=== PATIENT | female | born 1940 | race Caucasian/White ===

== ENCOUNTER 2019-01-11 05:48 | Observation (INO) | payer MEDICARE ==
--- NOTE | 2019-01-07 11:22 | Diagnostic Imaging Report ---
EXAMINATION: CHEST 2 VIEWS INDICATION: Pre-admit. COMPARISON: Chest radiograph 09/04/2013. FINDINGS: TUBES and LINES: Left-sided AICD device with leads overlying the right atrium, coronary sinus, and right ventricle. LUNGS: Lungs are well inflated. A 7 mm nodular opacity projects over the right midlung. There is no evidence of pneumonia or pulmonary edema. Mild patchy right basilar opacity, likely atelectasis. PLEURA: No pleural effusion or pneumothorax. HEART AND MEDIASTINUM: The cardiomediastinal silhouette is unremarkable. There are atherosclerotic calcifications within the aorta. BONES AND SOFT TISSUES: No acute osseous abnormality. UPPER ABDOMEN: No free air under the diaphragm. IMPRESSION: No acute radiographic abnormality. A 7 mm nodular opacity projects over the right midlung. Suggest chest CT for further evaluation. Signed by: Dr. Gaudencio Hart MD on 01/07/2019 11:18 AM
[2019-01-08 08:41] LABS: BASOPHILS % 0.8 % (0.0-1.0); EOSINOPHILS # (AUTO) 0.2 (0.0-0.4); HEMOGLOBIN 12.9 g/dL (12.0-16.0); LYMPHOCYTES # (AUTO) 1.2 (1.0-3.2); LYMPHOCYTES % 24.7 % (18.0-39.1); MEAN CORPUSCULAR HEMOGLOBIN 29.6 pg (28-32); MEAN CORPUSCULAR HGB CONC 33.1 g/dL (31-35); MEAN CORPUSCULAR VOLUME 89.4 fL (81-99); MONOCYTES # (AUTO) 0.3 (0.2-0.8); NEUTROPHILS # (AUTO) 3.2 (2.1-6.9); NEUTROPHILS % 65.1 % (38.7-80.0); PLATELET COUNT 165 x10e3/uL (140-360); RED BLOOD COUNT 4.36 x10e6/uL (3.6-5.1); RED CELL DISTRIBUTION WIDTH 13.5 % (11.7-14.4)
[~2019-01-11] VITALS: Ht 165.1 cm; Wt 68.7 kg
[~2019-01-11 05:48] MED LIST: ALPRAZOLAM0.5 M1 PO; ASPIR 8181 MG PO; COZAAR25 MG; LASIX20 MG; LISINOPRIL2.5 MG PO; LOSARTAN POTAS100 MG PO; METOPROLOL SUCC25 MG; MICARDIS80 MG PO; PANTOPRAZOLE SO40 MG PO; PAROXETINE HCL20 MG PO; PRAVACHOL20 MG PO; PRAVASTATIN SOD10 MG PO; PROMETHAZINE HC25 M1 PO; PROTONIX20 MG; SPIRONOLACTONE25 MG; TRICOR145 MG PO; TYLENOL PO; VIT D PO
--- OUTSIDE RECORDS SUMMARY | 2019-01-11 05:52 | XMS REPORT | Continuity of Care Document ---
Author Author [facility] Address Unknown Phone Unavailable Problems Problem Status Onset Date Classification Date Reported Comments Source R94.01 - ABNORMAL ELECTROENCEPHALOGRAM Active 10/09/2016 [facility] V76.12 - SCREEN MAMMOGRA Active 07/09/2012 [facility] ROUTINE Active 06/20/2011 [facility] Vitamin D deficiency Active Problem 07/25/2018 Dieudonne Reese Primary osteoarthritis involving multiple joints Active Problem 07/25/2018 Dieudonne Reese Pain in right knee Active Problem 07/25/2018 Dieudonne Reese SCREEN MAMMOGRAM NEC Active [facility] Medications Medication Details Route Status Patient Instructions Ordering Provider Order Date Source Centrum as directed Orally Active - Orally Mary Ann Reese Osteo Bi-Flex Adv Double St as directed Orally Active - Orally Mary Ann Reese Losartan Potassium 1 tablet Orally Active 50 MG Orally Once a day Ventress Dieudonne Reese Pantoprazole Sodium 1 tablet Orally Active 40 MG Orally Once a day Ventress Dieudonne Reese Tylenol Extra Strength 1 tablet as needed Orally Active 500 MG Orally every 6 hrs Reese Dieudonne Reese Lisinopril 1 tablet Orally Active 2.5 MG Orally Once a day Reese Dieudonne Reese Metoprolol Tartrate 1 tablet with food Orally Active 25 MG Orally Twice a day Ventress Dieudonne Reese Pravastatin Sodium 1 tablet Orally Active 10 MG Orally Once a day Reese Dieudonne Reese Allergies, Adverse Reactions, Alerts Substance Category Reaction Severity Reaction type Status Date Reported Comments Source penicillin Adverse Reaction Info Not Available Adverse Reaction Active 07/16/2018 Dieudonne Reese Immunizations Immunization Date Given Site Status Last Updated Comments Source Results Order Name Results Value Reference Range Date Interpretation Comments Source Chest w/wo contrast CT Chest w/wo contrast CT Exam: CT scan of the chest with and without contrast Reason for Exam: Abnormal echocardiogram Comparison Exam: None available Technique: Multiple axial images were obtained of the chest. 3.75 mm slices were acquired with and without injection of 100 cc Omnipaque IV. In addition, reformatted sagittal and coronal images were obtained for additional diagnostic information. Total exam UVS=282 mGy-cm. Discussion: Cardiac pacemaker device is noted. Visualized portions of the thyroid gland are unremarkable. No mediastinal, hilar, or axillary lymphadenopathy. The heart size is within normal limits. No pericardial or pleural effusions. The central airways are patent. Central airways are patent. No interstitial thickening or bronchiectasis. No focal lung consolidations. Note is made of multiple subcentimeter pulmonary nodules. The largest is seen within the superior segment of the right upper lobe measuring 9 mm (series 4, 43). Others are seen within the minor fissure (4, 47) and left major fissure (series 4, 44). The visualized portions of the adrenal glands are within normal limits. Cyst seen within the liver measuring 6.1 cm. Partially seen cyst within the superior pole of the right kidney. No evidence for thoracic aortic aneurysm or dissection. Impression: 1. The heart and mediastinum are unremarkable in appearance. No evidence for thoracic aortic aneurysm. 2. Multiple subcentimeter pulmonary nodules as detailed above. Correlate with patient's clinical history and consider short-term follow-up exam. 10/23/2016 - - Read by: Diaz Priest MD Dictated Date/time: 10/23/16 11:57 Electronically Signed by: Diaz Priest MD 10/23/16 12:13 FINAL REPORT [facility] Small Spine lumbar minimum 4 views Spine lumbar minimum 4 views LUMBAR SPINE SERIES CLINICAL HISTORY: Low back pain. COMPARISON IMAGING: None. FINDINGS: Five views of the lumbar spine were obtained. Moderate multilevel degenerative changes are present, including loss of disc height, endplate sclerosis, marginal osteophytes, and facet hypertrophy. Multiple neural foramina appear narrowed. There is approximately 14 mm of grade 2 anterolisthesis at L4-L5. No pars defect is seen, suggesting facet arthrosis as the etiology of this finding. Vertebral body heights and alignment are otherwise maintained. No acute fracture is seen. Soft tissues are grossly unremarkable. IMPRESSION: Moderate multilevel degenerative changes with grade 2 anterolisthesis at L4-L5. 02/17/2014 - - Read by: Eulalio Singleton MD Dictated Date/time: 02/17/14 13:32 Electronically Signed by: Eulalio Singleton MD 02/17/14 13:33 FINAL REPORT [facility] Small Hip min 2 views Hip min 2 views LEFT HIP SERIES CLINICAL HISTORY: Hip pain. COMPARISON IMAGING: None. FINDINGS: Two views were submitted for evaluation. Moderate to severe loss of joint space, large marginal osteophytes, and mild subchondral sclerosis at the left hip indicate moderate to severe osteoarthritis. No fracture, dislocation, or suspicious radiopaque foreign body is seen. Soft tissues are unremarkable. IMPRESSION: Moderate to severe osteoarthritis. 02/17/2014 - - Read by: Eulalio Singleton MD Dictated Date/time: 02/17/14 13:35 Electronically Signed by: Eulalio Singleton MD 02/17/14 13:36 FINAL REPORT [facility] Small Knee AP and lateral Knee AP and lateral RIGHT KNEE SERIES CLINICAL HISTORY: Knee pain. COMPARISON IMAGING: None. FINDINGS: 2 views of the right knee are submitted for interpretation. Moderate to severe osteoarthritis is present, most prominent in the medial compartment. These changes include loss of joint space, subchondral sclerosis, and marginal osteophytes. There is no fracture. A large joint effusion is seen. Soft tissues are unremarkable. IMPRESSION: Moderate to severe osteoarthritis with a large joint effusion. 02/17/2014 - - Read by: Eulalio Singleton MD Dictated Date/time: 02/17/14 13:34 Electronically Signed by: Eulalio Singleton MD 02/17/14 13:35 FINAL REPORT PADMINI [facility] Small Spine lumbar wo contrast MRI Spine lumbar wo contrast MRI MRI LUMBAR SPINE WITHOUT CONTRAST 05/04/2013 CLINICAL: Bilateral lumbar radiculopathy. TECHNIQUE: Sagittal T1, sagittal T2 with fat saturation, axial T1 and axial T2 images were obtained. No intravenous gadolinium was given. FINDINGS: The paravertebral soft tissues are normal. The conus medullaris terminates at the L1-L2 level. Multilevel lower thoracic spine degenerative changes are seen, with T10-T11 and T11-T12 disc bulges resulting in mild central canal stenosis. No mass effect on the conus medullaris is present. L1-L2: Mild disc bulge is present with minimal central canal stenosis. No foraminal stenosis is seen. L2-L3: Mild to moderate disc bulge is present, measuring 3.9 mm in the AP dimension. Moderate facet osteoarthritis and ligamenta flava redundancy are seen with mild to moderate central canal stenosis. No significant foraminal stenosis identified. L3-L4: Mild disc bulge is present with mild central canal stenosis. No significant foraminal stenosis is seen. L4 superior endplate Schmorl's node is present. L4-L5: Grade 1 anterolisthesis is present with disc bulge. Severe bilateral facet osteoarthritis is present. Significant ligamenta flava redundancy is seen. Severe central canal stenosis is present. The lateral recesses are severely stenotic with impingement of the bilateral L5 descending nerve roots. Severe right foraminal stenosis and moderate to severe left foraminal stenosis are present with corresponding mass effect on the bilateral L4 exiting nerve root sleeves. L5-S1: Disc bulge is present with mild thecal sac stenosis. Bilateral foraminal and extraforaminal disc osteophyte complexes are present, with moderate left foraminal stenosis and mild right foraminal stenosis. Mild mass effect on the bilateral L5 exiting nerve root sleeves is seen. IMPRESSION: 1. Multilevel disc degenerative disease and spondylosis. 2. L2-L3 mild to moderate central canal stenosis. 3. L4-L5 severe central canal stenosis an lateral recess stenosis with impingement of the bilateral L5 descending nerve roots. Grade 1 anterolisthesis. Moderate to severe bilateral foraminal stenosis as above. 4. L5-S1 moderate left foraminal stenosis and mild right foraminal stenosis as above. 5. Please see additional comments above. 05/04/2013 - - Read by: Tyrell Gaston Dictated Date/time: 05/04/13 10:57 Electronically Signed by: Tyrell Gaston MD 05/04/13 11:44 FINAL REPORT [facility] Small Vital Signs Vital Sign Value Date Comments Source Weight 151.6 07/16/2018 Dieudonne Reese Height 65 07/16/2018 Dieudonne Reese Heart Rate 74 07/16/2018 Dieudonne Reese Diastolic (mm Hg) 80 07/16/2018 Dieudonne Reese Systolic (mm Hg) 130 07/16/2018 Dieudonne Reese Encounters Location Location Details Encounter Type Encounter Number Reason For Visit Attending Provider ADM Date DC Date Status Source [facility] Outpatient [id number] ROUTINE N [place] 08/09/2011 Active [facility] OD [id number] V76.12 - SCREEN MAMMOGRA ADAIR [place] 08/24/2012 08/24/2012 Active [facility] [id number] Everardo Berrios 02/17/2014 02/18/2014 [facility] [place] [id number] Jean Marie Swanson 10/23/2016 10/24/2016 [facility] Procedures Procedure Code Date Perfomer Comments Source
--- OUTSIDE RECORDS SUMMARY | 2019-01-11 05:53 | XMS REPORT ---
Author Author Louie Reese Organization [employer] Address Unknown Phone Unavailable Care Team Providers Care Brim Edge Trimmer Name Role Phone Louie Reese CP Unavailable Allergies No Known Allergies Problems Problem Type Condition Code Onset Dates Condition Status Problem Vitamin D deficiency E55.9 Active Problem Primary osteoarthritis involving multiple joints M15.0 Active Problem Pain in right knee M25.561 Active Medications No Known Medications Results No Known Results Summary Purpose [employer] Submission
--- OUTSIDE RECORDS SUMMARY | 2019-01-11 05:53 | XMS REPORT ---
Author Author Louie Reese Organization [employer] Address Unknown Phone Unavailable Care Team Providers Care Surgical Scrub Tech Name Role Phone Louie Reese CP Unavailable Allergies No Known Allergies Problems Problem Type Condition Code Onset Dates Condition Status Problem Vitamin D deficiency E55.9 Active Problem Primary osteoarthritis involving multiple joints M15.0 Active Problem Pain in right knee M25.561 Active Medications No Known Medications Results No Known Results Summary Purpose [employer] Submission
--- OUTSIDE RECORDS SUMMARY | 2019-01-11 05:53 | XMS REPORT ---
[facility] Address Unknown Phone Unavailable Care Team Providers Care Radiology Services Manager Name Role Phone CHRISTINA DIAMOND Unavailable Unavailable Problems This patient has no known problems. Allergies, Adverse Reactions, Alerts This patient has no known allergies or adverse reactions. Medications This patient has no known medications. Results Test Description Test Time Test Comments Text Results Atomic Results Result Comments CHEST 2 VIEWS 2019-01-07 10:56:00 [place] [address] Patient Name: ALFONSO CALLOWAY MR #: [id number] : 1940 Age/Sex: 78/F Req #: [id number] Adm Physician: Ordered by: CHRISTINA DIAMOND MD Report #: [id number] Location: OR Room/Bed: Procedure: [id number] DX/CHEST 2 VIEWS Exam Date: 01/07/19 Exam Time: 1025 REPORT STATUS: Signed EXAMINATION: CHEST 2 VIEWS INDICATION: Pre-admit. COMPARISON: Chest radiograph 09/04/2013. FINDINGS: TUBES and LINES: Left-sided AICD device with leads overlying the right atrium, coronary sinus, and right ventricle. LUNGS: Lungs are well inflated. A 7 mm nodular opacity projects over the right midlung. There is no evidence of pneumonia or pulmonary edema. Mild patchy right basilar opacity, likely atelectasis. PLEURA: No pleural effusion or pneumothorax. HEART AND MEDIASTINUM: The cardiomediastinal silhouette is unremarkable. There are atherosclerotic calcifications within the aorta. BONES AND SOFT TISSUES: No acute osseous abnormality. UPPER ABDOMEN: No free air under the diaphragm. IMPRESSION: No acute radiographic abnormality. A 7 mm nodular opacity projects over the right midlung. Suggest chest CT for further evaluation. Signed by: Dr. Tiki Pollard MD on 01/07/2019 11:18 AM Dictated By: TIKI POLLARD MD [id number] Transcribed By: YANY on 01/07/19 1118 COPY TO: CHRISTINA DIAMOND MD
--- OUTSIDE RECORDS SUMMARY | 2019-01-11 05:53 | XMS REPORT | Summary of Care ---
Author Author [facility] [place] Organization [facility] Address Unknown Phone Unavailable Encounter HQ Encntr_alias(FIN) [id number] Date(s): 10/23/16 - 10/23/16 [facility] [place] [address] [place] [address] [phone] Discharge Disposition: Home or Self Care Attending Physician: Jean Marie Swanson MD Vital Signs No data available for this section Problem List No data available for this section Allergies, Adverse Reactions, Alerts No data available for this section Medications No data available for this section Results No data available for this section Immunizations No data available for this section Procedures No data available for this section Social History No data available for this section Assessment and Plan No data available for this section
--- OUTSIDE RECORDS SUMMARY | 2019-01-11 05:53 | XMS REPORT ---
Author Author Louie Reese Organization [employer] Address Unknown Phone Unavailable Care Team Providers Care Flasher Adjuster Name Role Phone Louie Reese CP Unavailable Allergies, Adverse Reactions, Alerts Substance Reaction Event Type penicillin Info Not Available Drug Allergy Problems Problem Type Condition Code Onset Dates Condition Status Problem Vitamin D deficiency E55.9 Active Problem Primary osteoarthritis involving multiple joints M15.0 Active Problem Pain in right knee M25.561 Active Assessment Pain in right knee M25.561 Active Assessment Primary osteoarthritis involving multiple joints M15.0 Active Medications Medication Code System Code Instructions Start Date End Date Status Dosage Centrum [facility] 56175039876 - Orally Active as directed Osteo Bi-Flex Adv Double St [facility] 19416548129 - Orally Active as directed Losartan Potassium ND 51703960393 50 MG Orally Once a day Active 1 tablet Pantoprazole Sodium [facility] 62775340065 40 MG Orally Once a day Active 1 tablet Tylenol Extra Strength ND 55694761337 500 MG Orally every 6 hrs Active 1 tablet as needed Lisinopril ND 53283469200 2.5 MG Orally Once a day Active 1 tablet Metoprolol Tartrate ND 42472660087 25 MG Orally Twice a day Active 1 tablet with food Pravastatin Sodium ND 73994496048 10 MG Orally Once a day Active 1 tablet Vital Signs Date/Time: Jul 16, 2018 BMI 25.22 Index Weight 151.6 lbs Height 65 in Cardiac Monitoring Heart Rate 74 /min Blood Pressure Diastolic 80 mm Hg Blood Pressure Systolic 130 mm Hg Results No Known Results Summary Purpose [employer] Submission
[2019-01-11] MEDS ORDERED: VANCOMYCIN HCL 1,000 MG ONE (06:26)
[2019-01-11] MEDS ORDERED: SODIUM CHLORIDE 0.9% 500ML 500 ML ONE (06:26)
[2019-01-11] MEDS ORDERED: BACITRACIN 50,000 UNIT VIAL ONE (06:27)
[2019-01-11] MEDS ORDERED: TRANEXAMIC ACID 1,000 MG/10 ML ML ONE (06:27)
[2019-01-11] MEDS ORDERED: ROPIVACAINE 246.25 MG, EPINEPHRINE HCL 1:1000 1ML 0.5 MG, CLONIDINE HCL 0.08 MG, KETORO... INJ ONE ×5 (06:30)
[2019-01-11] MEDS ORDERED: VANCOMYCIN 1GM/NS 250 ML 250 ML ONE (06:35)
[2019-01-11] MEDS ORDERED: GABAPENTIN 300 MG CAP ONE (06:35)
[2019-01-11] MEDS ORDERED: DEXAMETHASONE SOD PHOS 10 MG/1 ML VIAL ONE (06:35)
[2019-01-11] MEDS ORDERED: CELECOXIB 200 MG CAP ONE (06:35)
[2019-01-11] MEDS ORDERED: DOCUSATE SODIUM 100 MG CAP PO PRN (09:30)
[2019-01-11] MEDS ORDERED: HYDROCODONE/APAP 7.5MG-325MG 1 EA TAB PO PRN (09:30)
[2019-01-11] MEDS ORDERED: HYDROCODONE/APAP 5MG-325MG TAB PO PRN (09:30)
[2019-01-11] MEDS ORDERED: DIPHENHYDRAMINE HCL INJ 50 MG/ML VIAL IM/IV PRN (09:30)
[2019-01-11] MEDS ORDERED: ONDANSETRON HCL INJ 2MG/ML 2ML 2 MG/ML VIAL IV PRN (09:30)
[2019-01-11] MEDS ORDERED: PROMETHAZINE HCL (IM) 25 MG/ML VIAL INJ PRN (09:30)
[2019-01-11] MEDS ORDERED: ACETAMINOPHEN 650 MG SUPP PR PRN (09:30)
[2019-01-11] MEDS ORDERED: KETOROLAC TROMETHAMINE 30 MG/ML VIAL IV PRN ×2 (09:30→10:45)
[2019-01-11] MEDS ORDERED: ZOLPIDEM TARTRATE 5 MG TAB PO PRN (09:30)
[2019-01-11] MEDS ORDERED: VANCOMYCIN 1GM/NS 250 ML 250 ML IV SCH (09:30)
[2019-01-11] MEDS ORDERED: MEPERIDINE HCL INJ 25 MG/ML VIAL ONE (09:40)
--- OUTSIDE RECORDS SUMMARY | 2019-01-11 09:54 | XMS REPORT | Summary of Care ---
Author Organization Unknown Address Unknown Phone Unavailable Encounter HQ Lonr_gissel(ED) [id number] Date(s): 02/17/14 - 02/17/14 [facility] Outpatient Imaging - [address] [address] Discharge Disposition: Home Physician Attending: Everardo Berrios MD Reason for Visit 715.00 - GENERAL OSTEOAR Problem List No data available for this section Allergies, Adverse Reactions, Alerts No data available for this section Medications No data available for this section Medications Administered During Your Visit No data available for this section Immunizations No data available for this section
[2019-01-11 10:06] VITALS: BP 178/84
[2019-01-11] MEDS: SODIUM CHLORIDE 0.9% 1000ML 1,000 ML IV SCH ×2 (11:54→19:24)
[2019-01-11] MEDS: ACETAMINOPHEN 1000 MG/100 ML IV SCH ×3 (11:55→23:07)
[2019-01-11 12:11] VITALS: BP 146/69
[2019-01-11 12:12] VITALS: BP 168/81
--- NOTE | 2019-01-11 12:25 | Diagnostic Imaging Report ---
Right knee radiographs-2 views History: Postoperative Findings: Status post right total knee arthroplasty and patellar resurfacing with prosthetic components in anatomic alignment. Overlying subcutaneous emphysema and surgical skin janie are present. No evidence of acute fracture or malalignment. IMPRESSION: Status post right total knee arthroplasty and anatomic position. Signed by: Dr. Gaudencio Hart MD on 01/11/2019 12:22 PM
[2019-01-11 12:27] VITALS: BP 146/69
[2019-01-11 16:20] VITALS: BP 153/71
[2019-01-11] MEDS: ASPIRIN 325 MG TAB PO SCH (17:01)
[2019-01-11] MEDS: CELECOXIB 100 MG CAP PO SCH (17:02)
[2019-01-11] MEDS: VANCOMYCIN 1GM/NS 250 ML 250 ML IV SCH (17:02)
--- NOTE | 2019-01-11 17:33 | Operative Report ---
DATE OF PROCEDURE: 01/11/2019 SURGEON: Rusty Marie MD MODELING TEACHER: Mu Simms PREOPERATIVE DIAGNOSIS: Osteoarthritis, right knee. POSTOPERATIVE DIAGNOSIS: Osteoarthritis, right knee. PROCEDURE: Right total knee arthroplasty. INDICATIONS: The patient is an active 78-year-old woman, who has end-stage arthritis in her right knee. She has failed conservative management and would like to proceed with a right total knee replacement. The risks and benefits of the procedure have been discussed. The added challenges to recover from the surgery due to her age have been discussed. She states she understands and wishes to proceed procedure. DESCRIPTION OF PROCEDURE: The patient was brought to the operating room and placed under general anesthetic. She received prophylactic antibiotics, a regional block and tranexamic acid in the holding area. Her right lower extremity was prepped and draped in a sterile manner. A preoperative time-out was performed. The extremity was exsanguinated and a proximal tourniquet was inflated to 300 mmHg. An anterior approach to the right knee was made. Her skin was very thin. A medial parapatellar arthrotomy was performed. Clear synovial fluid was removed from the joint. Soft tissue releases were performed to bring the knee up into flexion with the patella everted. Meniscal remnants and marginal osteophytes were removed. The cruciate ligaments were sacrificed. A Rascon and NephFévrier 46 knee system was used with ultracongruent tibial inserts. An extramedullary cutting guide was used to resect the proximal tibia. The cut was referenced off the least affected lateral compartment. The tibial base plate was a size #4. The central fin punch was impacted and attention was directed towards the distal femur. An intramedullary cutting guide was used to resect the distal femur in 6 degrees of valgus and rotation referencing off a combination of landmarks including Whitesides line, the epicondylar axis and the posterior condyles. The femoral component was size #5. The anterior and posterior cuts were made. Trial reduction was performed. A 9 mm ultracongruent tibial insert provided appropriate soft tissue balancing in both flexion and extension. The patella was resurfaced with a 29 mm x 7.5 mm patellar button. The thickness was checked before and after resurfacing, was right around 22 mm. Patellar tracking was noted to be concentric. The trial implants were removed. A 100 mL premixed pericapsular TYLER injection was placed into the surrounding soft tissue. The knee was thoroughly irrigated with a shower tip pulsatile lavage. The components were cemented into place using a single mix of Palacos cement preloaded with antibiotics. Care was taken to remove all extravasated cement. The wound was further irrigated, while the cement cured. Vancomycin powder 500 mg was then placed into the joint. The arthrotomy was carefully closed with interrupted #1 Ethibond. The knee was put through flexion and extension to ensure a secure closure. The skin was carefully closed with subcuticular Vicryl and janie. As noted previously, the skin was very thin. A sterile bandage was applied. The patient was extubated and transported to the recovery room in stable condition. Blood loss was minimal. All needle and sponge counts were correct. Rusty Marie MD DR/GOPAL /[id number]
[2019-01-11] MEDS ORDERED: PROPOFOL IV EMULSION 10 MG/ML 20 ML VIAL ONE (17:44)
[2019-01-11] MEDS ORDERED: SEVOFLURANE INHAL SOLN 250 ML PEN BTL ONE (17:44)
[2019-01-11] MEDS ORDERED: LIDOCAINE HCL 2% LOCAL INJ 5 ML SDV VIAL INJ ONE (17:44)
[2019-01-11] MEDS ORDERED: ONDANSETRON HCL INJ 2MG/ML 2ML 2 MG/ML VIAL ONE (17:44)
[2019-01-11] MEDS ORDERED: LIDOCAINE 2% /EPINEPHRINE 20 ML SDV INJ ONE (18:16)
[2019-01-11] MEDS ORDERED: ROPIVACAINE 0.5% 5 MG/ML 30 ML SDV ONE (18:16)
[2019-01-11] MEDS ORDERED: FENTANYL CITRATE/PF 100MCG/2 ML INJ ONE (18:53)
[2019-01-11] MEDS ORDERED: MIDAZOLAM HCL 2 MG/2 ML VIAL ONE (18:53)
--- NOTE | 2019-01-11 19:15 | NUR ---
Rounding done & report received. Patient is resting in bed, awake & alert. Respirations even & unlabored, no distress noted. IV fluids running to L FA, no infiltration noted. Patient has Kerlex dressing to RLE, w/ heel placed on pillow, ice pack in place. Patient denies any issues or needs at this time. Call light within reach, bed set to lowest position & side rails x2 raised.
--- NOTE | 2019-01-11 19:41 | NUR ---
PATIENT PLACED ON CPM AT 0-50 DEGREES, PATIENT DENYING DISCOMFORT, PAIN, PINCHING AND TINGLING.
[2019-01-11 20:00] VITALS: BP 178/84
[2019-01-12] VITALS: BP 167/76
[2019-01-12 00:04] VITALS: BP 178/84
[2019-01-12 04:00] VITALS: BP 162/73
[2019-01-12] MEDS: SODIUM CHLORIDE 0.9% 1000ML 1,000 ML IV SCH (04:30)
[2019-01-12] MEDS: VANCOMYCIN 1GM/NS 250 ML 250 ML IV SCH (04:33)
--- NOTE | 2019-01-12 06:03 | NUR ---
CPM placed, setting @ 60, patient tolerating well.
[2019-01-12 06:23] LABS: HEMATOCRIT 30.6 % (34.2-44.1); HEMOGLOBIN 10.1 g/dL (12.0-16.0)
--- NOTE | 2019-01-12 07:00 | NUR ---
BEDSIDE SHIFT REPORT FROM MALIHA CHASE. PT DENIES NEEDS AT THIS TIME.
--- NOTE | 2019-01-12 07:16 | Consultation ---
DATE OF CONSULTATION: CHIEF COMPLAINT: 78-year-old female, status post right knee open arthroplasty. HISTORY OF PRESENT ILLNESS: This is an 78-year-old woman with a history of coronary artery disease, was operated yesterday for right knee replacement. The patient is currently stable. Pain is controlled. No chest pain noted. The patient has history of CAD. The patient risks was considered as average cardiac risks. The patient underwent surgery. MEDICATIONS: At this time include aspirin, lisinopril 2.5, losartan 100 mg pantoprazole, pravastatin, and Tylenol as needed. Currently, the patient is also received Ketorolac, promethazine, and zolpidem for sleep. PAST MEDICAL HISTORY: As mentioned above, hypertension, CAD, hyperlipidemia, and history of osteoarthritis. PAST SURGICAL HISTORY: Noncontributory. The patient did have recent stress test which was nondiagnostic. LV function was abnormal. The patient was cleared for surgery. REVIEW OF SYSTEMS: At this time. No chest pain or shortness of breath. No nausea, vomiting, or diarrhea. No constipation. No rectal bleeding. Positive for pain in the right lower extremity. PHYSICAL EXAMINATION: VITAL SIGNS: Temperature 97.3, pulse of 79, respirations 18, and blood pressure is 167/76. HEENT: Normocephalic and atraumatic. No pallor noted. No icterus noted. CVS: S1 and S2 normal. Regular rate and rhythm. ABDOMEN: Nontender and nondistended. EXTREMITIES: No clubbing, no cyanosis, no edema. Right knee in a CPM. ASSESSMENT: 78-year-old female with coronary artery disease, status post right knee arthroplasty. PLAN: Plan is to continue on her beta-blockade and CHANELL inhibitors with a history of LV function dysfunction and beta-blockade, continue with this. Aspirin is instituted for DVT prophylaxis. Medications were reviewed. Statins will be reinstated and further recommendation per clinical course. We will continue monitoring the patient and continue with postoperative medications and orders as per Orthopedics. MD JAMAICA Richardson/MODL /[id number]
[2019-01-12 08:00] VITALS: BP 162/73
[2019-01-12 08:21] VITALS: BP 194/82
[2019-01-12] MEDS: ASPIRIN 325 MG TAB PO SCH (08:50)
[2019-01-12] MEDS: CELECOXIB 100 MG CAP PO SCH (08:50)
[2019-01-12] MEDS: ACETAMINOPHEN 1000 MG/100 ML IV SCH (08:50)
--- NOTE | 2019-01-12 08:58 | NUR ---
SHAWNA called and spoke with Saira with intake at [facility]. Informed her of anticipated discharge for today. She said they will be able to see pt tomorrow. Called and spoke to Carmela at [employer]. She states they have spoken to pt. She already has a walker and refused [facility]. They will deliver the CPM today. Both company's contact information was printed and given to pt.
[2019-01-12] MEDS ORDERED: ACETAMINOPHEN 1000 MG/100 ML IV PRN (09:30)
[2019-01-12 12:39] VITALS: BP 187/71
[2019-01-12] MEDS ORDERED: NORCO 7.5-3251 EACH PO (14:21)
--- NOTE | 2019-01-12 14:30 | NUR ---
DRU FROM STANDPOINT OF DR. SAGE TO DISCHARGE HOME.
== END 2019-01-12 15:17 | disposition home or self-care (01) ==
LOC: OR 05:48 → PACU V 09:26 → MED/SURG 10:07
PROVIDERS: ADMIT Specialist; ATTEND Specialist
DX: M17.11 Unilateral primary osteoarthritis, right knee (principal); M16.0 Bilateral primary osteoarthritis of hip; E11.9 Type 2 diabetes mellitus without complications; Z86.73 Personal history of transient ischemic attack (TIA), and cerebral infarction without residual deficits; I10 Essential (primary) hypertension; Z88.0 Allergy status to penicillin; Z83.3 Family history of diabetes mellitus; Z82.3 Family history of stroke; Z82.49 Family history of ischemic heart disease and other diseases of the circulatory system; Z79.82 Long term (current) use of aspirin; Z01.812 Encounter for preprocedural laboratory examination; Z01.811 Encounter for preprocedural respiratory examination; I25.10 Atherosclerotic heart disease of native coronary artery without angina pectoris
CPT/HCPCS: 27447; 36415 ×2; 71046; 73560; 85014; 85018; 85025; 86850; 86900; 86920; 97116 ×2; 97139; 97162; 97530 ×2; G0378 ×2; J0131 ×2; J0171; J1100; J1885; J2001 ×2; J2175; J2250; J2405; J2704; J2795; J3370 ×3; J7030; J7040

== ENCOUNTER 2019-02-07 14:12 | Inpatient (IN) | payer MEDICARE ==
[~2019-02-07] VITALS: Ht 170.2 cm; Wt 68.5 kg
[~2019-02-07 14:12] MED LIST changes: +NORCO 7.5-3251 EACH PO
--- OUTSIDE RECORDS SUMMARY | 2019-02-07 14:16 | XMS REPORT | Continuity of Care Document ---
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 Role Phone [employer] Unavailable Unavailable Problems Problem Status Onset Date Classification Date Reported Comments Source R94.01 - ABNORMAL ELECTROENCEPHALOGRAM Active 10/09/2016 [facility] V76.12 - SCREEN MAMMOGRA Active 07/09/2012 [facility] ROUTINE Active 06/20/2011 [facility] Vitamin D deficiency Active Problem 07/25/2018 Dieudonne Reese Primary osteoarthritis involving multiple joints Active Problem 07/25/2018 Dieudonne Reese Pain in right knee Active Problem 07/25/2018 Dieudonne Reese SCREEN MAMMOGRAM NEC Active [facility] Medications Medication Details Route Status Patient Instructions Ordering Provider Order Date Source Centrum as directed Orally Active - Orally Mary Ann Reese Osteo Bi-Flex Adv Double St as directed Orally Active - Orally Mary Ann Reese Losartan Potassium 1 tablet Orally Active 50 MG Orally Once a day [place] Dieudonne Reees Pantoprazole Sodium 1 tablet Orally Active 40 MG Orally Once a day [place] Dieudonne Reese Tylenol Extra Strength 1 tablet as needed Orally Active 500 MG Orally every 6 hrs Mary Ann Reese Lisinopril 1 tablet Orally Active 2.5 MG Orally Once a day [place] Dieudonne Reese Metoprolol Tartrate 1 tablet with food Orally Active 25 MG Orally Twice a day [place] Dieudonne Reese Pravastatin Sodium 1 tablet Orally Active 10 MG Orally Once a day [place] Dieudonne Reese Allergies, Adverse Reactions, Alerts Substance Category Reaction Severity Reaction type Status Date Reported Comments Source penicillin Adverse Reaction Info Not Available Adverse Reaction Active 07/16/2018 Dieudonne Reese Immunizations No Data Provided for This Section Results No Data Provided for This Section Pathology Reports No Data Provided for This Section Diagnostic Reports Report Value Date Source Chest w/wo contrast CT Exam: CT scan of the chest with and without contrast Reason for Exam: Abnormal echocardiogram Comparison Exam: None available Technique: Multiple axial images were obtained of the chest. 3.75 mm slices were acquired with and without injection of 100 cc Omnipaque IV. In addition, reformatted sagittal and coronal images were obtained for additional diagnostic information. Total exam CYS=475 mGy-cm. Discussion: Cardiac pacemaker device is noted. [...] history and consider short-term follow-up exam. 10/23/2016 [facility] Small Spine lumbar minimum 4 views LUMBAR SPINE [...] with grade 2 anterolisthesis at L4-L5. 02/17/2014 [facility] [place] Knee AP and lateral RIGHT KNEE SERIES [...] osteoarthritis with a large joint effusion. 02/17/2014 [facility] Small Hip min 2 views LEFT HIP SERIES [...] unremarkable. IMPRESSION: Moderate to severe osteoarthritis. 02/17/2014 [facility] Spine lumbar wo contrast MRI MRI LUMBAR [...] 5. Please see additional comments above. 05/04/2013 [facility] Consultation Notes No Data Provided for This Section Discharge Summaries No Data Provided for This Section History and Physicals No Data Provided for This Section Vital Signs Vital Sign Value Date Comments Source Weight 151.6 07/16/2018 Dieudonne Reese Height 65 07/16/2018 Dieudonne Reese Heart Rate 74 07/16/2018 Dieudonne Reese Diastolic (mm Hg) 80 07/16/2018 Dieudonne Reese Systolic (mm Hg) 130 07/16/2018 Dieudonne Reese Encounters Location Location Details Encounter Type Encounter Number Reason For Visit Attending Provider ADM Date DC Date Status Source [facility] Outpatient [id number] ROUTINE [place] 08/09/2011 Active [facility] [place] [id number] V76.12 - SCREEN MAMMOGRA ADAIR [place] 08/24/2012 08/24/2012 Active [facility] [place] [facility] [id number] Everardo Berrios 02/17/2014 02/18/2014 [facility] [place] [facility] [id number] Jean Marie Swanson 10/23/2016 10/24/2016 [facility] Procedures No Data Provided for This Section Assessment and Plan No Data Provided for This Section Plan of Care No Data Provided for This Section Social History Social History Date Source No data available for this section 10/24/2016 [facility] Family History No Data Provided for This Section Advance Directives No Data Provided for This Section Functional Status No Data Provided for This Section
[2019-02-07] MEDS ORDERED: ASPIRIN 81 MG CHEW TAB PO NR (14:30)
[2019-02-07 15:06] LABS: BASOPHILS % 0.5 % (0.0-1.0); EOSINOPHILS # (AUTO) 0.1 (0.0-0.4); EOSINOPHILS % 1.2 % (0.0-6.0); HEMATOCRIT 35.8 % (34.2-44.1); HEMOGLOBIN 11.9 g/dL (12.0-16.0); LYMPHOCYTES # (AUTO) 1.5 (1.0-3.2); LYMPHOCYTES % 17.4 % (18.0-39.1); MEAN CORPUSCULAR HGB CONC 33.2 g/dL (31-35); MEAN CORPUSCULAR VOLUME 87.1 fL (81-99); MONOCYTES # (AUTO) 0.6 (0.2-0.8); MONOCYTES % 6.4 % (4.4-11.3); NEUTROPHILS # (AUTO) 6.4 (2.1-6.9); PLATELET COUNT 232 x10e3/uL (140-360); RED BLOOD COUNT 4.11 x10e6/uL (3.6-5.1); RED CELL DISTRIBUTION WIDTH 13.1 % (11.7-14.4)
[2019-02-07 15:09] LABS: INR 1.07; PROTHROMBIN TIME 14.4 seconds (11.9-14.5)
[2019-02-07 15:10] LABS: PARTIAL THROMBOPLASTIN TIME 33.4 seconds (23.8-35.5)
[2019-02-07 15:14] LABS: ALBUMIN 4.1 g/dL (3.5-5.0); ALBUMIN/GLOBULIN RATIO 1.2 (0.8-2.0); ANION GAP 21.2 mmol/L (8-16); CALCIUM 11.4 mg/dL (8.4-10.2); CREATININE, SERUM 1.38 mg/dL (0.57-1.11); POTASSIUM 4.2 mmol/L (3.5-5.1)
--- NOTE | 2019-02-07 15:15 | Diagnostic Imaging Report ---
History:Altered mental status Comparison studies: None Technique: Axial images were obtained from the skull base to the vertex. Coronal and sagittal images reconstructed from the axial data. Dose modulation, iterative reconstruction, and/or weight based adjustment of the mA/kV was utilized to reduce the radiation dose to as low as reasonably achievable. Intravenous contrast: None Findings: Scalp/skull: No abnormalities. Extra-axial spaces: No masses. No fluid collections. Brain sulci: Mildly prominent. Ventricles: Mild compensatory dilatation. No hydrocephalus. Parenchyma: Subtle hypodensities in the supratentorial white matter are small vessel ischemic changes. No masses, hemorrhage, acute or chronic cortical vascular insults. Sellar/suprasellar region: No abnormalities. Craniocervical junction: Patent foramen magnum. No Chiari one malformation. Incidental findings: Atherosclerotic calcifications in the carotid siphons and vertebral arteries. Impression: No acute abnormalities. Chronic findings: 1. Mild age-related generalized volume loss. 2. Mild supratentorial white matter small vessel ischemic changes. Signed by: Dr. Doug Covarrubias M.D. on 02/07/2019 3:11 PM
[2019-02-07 15:20] LABS: CREATINE KINASE MB 0.8 ng/mL (0-5.0)
--- NOTE | 2019-02-07 15:41 | Diagnostic Imaging Report ---
EXAMINATION: CHEST SINGLE (PORTABLE) INDICATION: Chest pain. COMPARISON: Chest radiograph 05/09/2014. FINDINGS: TUBES and LINES: Left-sided AICD with leads in unchanged position. LUNGS: Lungs are well inflated. Lungs are clear. There is no evidence of pneumonia or pulmonary edema. PLEURA: No pleural effusion or pneumothorax. HEART AND MEDIASTINUM: The cardiomediastinal silhouette is unremarkable. BONES AND SOFT TISSUES: No acute osseous abnormality. UPPER ABDOMEN: No free air under the diaphragm. IMPRESSION: No acute radiographic abnormality. Signed by: Dr. Gaudencio Hart MD on 02/07/2019 3:38 PM
[2019-02-07 16:01] LABS: BILIRUBIN,URINE NEGATIVE (NEGATIVE); CLARITY,URINE CLEAR (CLEAR); COLOR,URINE YELLOW (YELLOW); KETONES,URINE NEGATIVE (NEGATIVE); LEUKOCYTE ESTERASE ,URINE NEGATIVE (NEGATIVE); NITRITE,URINE NEGATIVE (NEGATIVE); PROTEIN,URINE DIPSTICK NEGATIVE (NEGATIVE); URINE UROBILINOGEN 0.2 mg/dL (0.2 - 1)
[2019-02-07] MEDS ORDERED: SODIUM CHLORIDE 0.9% 500ML 500 ML IV ONE (16:15)
[2019-02-07 16:35] LABS: EPITHELIAL CELLS,URINE FEW /LPF; RBC,URINE 0-5 /HPF (0-5)
[2019-02-07 16:36] LABS: AMORPHOUS SEDIMENT,URINE FEW (FEW)
[2019-02-07] MEDS ORDERED: SODIUM CHLORIDE 0.9% 50ML 50 ML ONE (17:11)
[2019-02-07] MEDS ORDERED: IOPAMIDOL 370 MG/ML 200 ML INFUS..BTL INJ ONE (17:11)
[2019-02-07] MEDS ORDERED: ONDANSETRON HCL INJ 2MG/ML 2ML 2 MG/ML VIAL IV PRN (17:15)
[2019-02-07] MEDS ORDERED: SODIUM CHLORIDE 0.9% 1000ML 1,000 ML IV ONE (17:15)
[2019-02-07] MEDS ORDERED: ULTRAM50 MG PO (17:24)
[2019-02-07] MEDS ORDERED: IBUPROFEN400 MG PO (17:24)
[2019-02-07] MEDS ORDERED: METOPROLOL SUCC25 MG PO (17:24)
[2019-02-07] MEDS ORDERED: VANCOMYCIN 1GM/NS 250 ML 250 ML IV ONE ×2 (17:30→19:30)
--- NOTE | 2019-02-07 17:39 | Diagnostic Imaging Report ---
EXAM: CT Chest with contrast- Pulmonary Embolism Protocol INDICATION: Shortness of breath, post operative. COMPARISON: Chest radiograph 02/07/2019. TECHNIQUE: Chest was scanned utilizing a multidetector helical scanner from the lung apex through the level of the diaphragm after administration of IV contrast. Thin section reconstructions were obtained with special concentration on the pulmonary arteries. Coronal and sagittal reformations were obtained. Pulmonary embolism protocol was performed. IV CONTRAST: 100 cc of Isovue 370 RADIATION DOSE: Total DLP: 470.8 mGy*cm Dose modulation, iterative reconstruction, and/or weight based adjustment of the mA/kV was utilized to reduce the radiation dose to as low as reasonably achievable. COMPLICATIONS: None FINDINGS: LINES/ TUBES: There is a left-sided AICD device with leads terminating in the right atrium, coronary sinus, and right ventricle. PULMONARY ARTERIES: No filling defect is identified within the pulmonary arteries to the segmental level. The subsegmental pulmonary arteries are not well opacified, with limited evaluation particularly in the lower lungs secondary to motion. Main pulmonary artery measures 2.3 cm in diameter. LUNGS AND AIRWAYS: The central airways are patent. Limited evaluation secondary to motion artifact. There is a 6 mm solid nodule in the right middle lobe on series 3, image 57 and a 7 mm subpleural solid nodule in the right lower lobe on image 52. There is a 3 mm solid nodule in the left upper lobe on image 21. Mild biapical pleural-parenchymal opacity. PLEURA: The pleural spaces are clear. HEART AND MEDIASTINUM: The thyroid gland is normal. No mediastinal, hilar or axillary lymphadenopathy. No cardiomegaly or pericardial effusion. Scattered coronary and aortic atherosclerosis. Diffuse mild esophageal wall thickening. Small hiatal hernia. The left vertebral artery arises directly from the thoracic aorta. UPPER ABDOMEN: Limited contrast-enhanced views of the upper abdomen. There is a 5.4 cm cyst in the right hepatic lobe (series 2, image 91; 18 HU). BONES: No acute osseous abnormality. No suspicious lytic or blastic lesions. Degenerative changes of the visualized spine. SOFT TISSUES: Unremarkable. IMPRESSION: No evidence of pulmonary embolism to the level of the segmental pulmonary arteries. Bilateral pulmonary nodules, measuring up to 7 mm in the right lower lobe. Follow-up chest CT is recommended in 3-6 months. Diffuse mild esophageal wall thickening which may represent esophagitis. If clinically indicated, follow-up EGD may be considered. Signed by: Dr. Gaudencio Hart MD on 02/07/2019 5:35 PM
[2019-02-07] MEDS: CEFEPIME 1GM/NS 0.9% 50 ML 50 ML IV SCH (18:04)
[2019-02-07] MEDS ORDERED: ASPIRIN 325 MG TAB EC PO NR (18:11)
--- OUTSIDE RECORDS SUMMARY | 2019-02-07 18:20 | XMS REPORT | Continuity of Care Document ---
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 Name Role Phone [employer] Unavailable Unavailable Problems Problem Status Onset Date Classification Date Reported Comments Source R94.01 - ABNORMAL ELECTROENCEPHALOGRAM Active 10/09/2016 [facility] V76.12 - SCREEN MAMMOGRA Active 07/09/2012 [facility] ROUTINE Active 06/20/2011 [facility] Vitamin D deficiency Active Problem 07/25/2018 Dieudonne Reese Primary osteoarthritis involving multiple joints Active Problem 07/25/2018 Dieudonne Reese Pain in right knee Active Problem 07/25/2018 Dieudonne Reese SCREEN MAMMOGRAM NEC Active [facility] Medications Medication Details Route Status Patient Instructions Ordering Provider Order Date Source Centrum as directed Orally Active - Orally Mary Ann Reese Osteo Bi-Flex Adv Double St as directed Orally Active - Orally Mary Ann Reese Losartan Potassium 1 tablet Orally Active 50 MG Orally Once a day [place] Dieudonne Reese Pantoprazole Sodium 1 tablet Orally Active 40 MG Orally Once a day [place] Dieudonne Reese Tylenol Extra Strength 1 tablet as needed Orally Active 500 MG Orally every 6 hrs Mary Ann Reese Lisinopril 1 tablet Orally Active 2.5 MG Orally Once a day [place] Dieudonne Reese Metoprolol Tartrate 1 tablet with food Orally Active 25 MG Orally Twice a day [place] Dieudonne Reese Pravastatin Sodium 1 tablet Orally [...] obtained for additional diagnostic information. Total exam OCK=933 mGy-cm. Discussion: Cardiac pacemaker device is noted. [...] IMPRESSION: Moderate to severe osteoarthritis. 02/17/2014 [facility] Spine lumbar wo contrast MRI MRI LUMBAR [...] Please see additional comments above. 05/04/2013 [facility] Consultation Notes No Data Provided for This [...] Provider ADM Date DC Date Status Source [facility] Out[facility] [id number] ROUTINE N [place] 08/09/2011 Active [facility] OD [id number] V76.12 - SCREEN MAMMOGRA ADAIR [place] 08/24/2012 08/24/2012 Active [facility] [place] [facility] [id number] Everardo Berrios 02/17/2014 02/18/2014 [facility] [place] [place] [facility] [id number] Jean Marie Swanson 10/23/2016 10/24/2016 [facility] Procedures No Data Provided for This Section Assessment and Plan No Data Provided for This Section Plan of Care No Data Provided for This Section Social History Social History Date Source No data available for this section 10/24/2016 [facility] Family History No Data Provided for This Section Advance Directives No Data Provided for This Section Functional Status No Data Provided for This Section
[2019-02-07 19:00] VITALS: BP_SYST 140; BP_SYST 166; BP_DIAS 85; BP_DIAS 87
[2019-02-07] MEDS: LORAZEPAM INJ 2 MG/ML VIAL IV PRN (19:45)
[2019-02-07] MEDS: ALBUTEROL SULF 0.083% NEB SOLN 3 ML NEB NEB SCH (19:55)
[2019-02-07 20:00] VITALS: BP 100/78
[2019-02-07] MEDS ORDERED: ZIPRASIDONE 20 MG VIAL IM STA (20:59)
[2019-02-07 21:00] VITALS: BP 157/123
[2019-02-07 21:47] LABS: CREATINE KINASE MB 1.1 ng/mL (0-5.0)
[2019-02-07 22:00] VITALS: BP 168/74
[2019-02-07 23:00] VITALS: BP 171/77
[2019-02-07 23:59] VITALS: BP 174/78
[2019-02-08] VITALS (21 sets, daily range): BP systolic 113–174; BP diastolic 55–85
[2019-02-08] MEDS: ALBUTEROL SULF 0.083% NEB SOLN 3 ML NEB NEB SCH ×4 (01:00→19:40)
[2019-02-08] MEDS: LORAZEPAM INJ 2 MG/ML VIAL IV PRN (03:39)
--- NOTE | 2019-02-08 05:36 | Diagnostic Imaging Report ---
Examination: Single AP view of the chest. COMPARISON: February 07, 2019 INDICATION: Shortness of breath DISCUSSION: Lines/tubes: Multi lead cardiac device. Lungs: The lungs are well inflated and clear. No pneumonia or pulmonary edema. Pleura: No pleural effusion or pneumothorax. Heart and mediastinum: The heart is mildly enlarged. Bones and soft tissues: No acute bony abnormalities. IMPRESSION: 1. No acute cardiopulmonary abnormalities. Signed by: Dr. René Guaman M.D. on 02/08/2019 5:33 AM
[2019-02-08 05:37] LABS: BASOPHILS % 0.5 % (0.0-1.0); EOSINOPHILS % 0.2 % (0.0-6.0); HEMATOCRIT 27.7 % (34.2-44.1); HEMOGLOBIN 9.1 g/dL (12.0-16.0); LYMPHOCYTES # (AUTO) 1.1 (1.0-3.2); LYMPHOCYTES % 17.4 % (18.0-39.1); MEAN CORPUSCULAR HEMOGLOBIN 29.5 pg (28-32); MEAN CORPUSCULAR HGB CONC 32.9 g/dL (31-35); MEAN CORPUSCULAR VOLUME 89.9 fL (81-99); MONOCYTES # (AUTO) 0.5 (0.2-0.8); MONOCYTES % 8.4 % (4.4-11.3); NEUTROPHILS # (AUTO) 4.7 (2.1-6.9); NEUTROPHILS % 72.7 % (38.7-80.0); PLATELET COUNT 153 x10e3/uL (140-360); RED BLOOD COUNT 3.08 x10e6/uL (3.6-5.1); RED CELL DISTRIBUTION WIDTH 13.2 % (11.7-14.4)
[2019-02-08] MEDS: CEFEPIME 1GM/NS 0.9% 50 ML 50 ML IV SCH ×2 (06:02→18:30)
[2019-02-08 06:20] LABS: CREATINE KINASE MB 2.8 ng/mL (0-5.0)
[2019-02-08 06:37] LABS: ANION GAP 16.1 mmol/L (8-16); CALCIUM 9.4 mg/dL (8.4-10.2); CREATININE, SERUM 1.07 mg/dL (0.57-1.11); POTASSIUM 4.1 mmol/L (3.5-5.1)
[2019-02-08] MEDS: ASPIRIN 81 MG CHEW TAB PO SCH (09:00)
[2019-02-08] MEDS: LISINOPRIL 2.5 MG TAB PO SCH (09:00)
[2019-02-08] MEDS ORDERED: ASPIRIN 325 MG TAB EC PO SCH (09:00)
[2019-02-08] MEDS: LOSARTAN POTASSIUM 25 MG TAB PO SCH (09:00)
[2019-02-08] MEDS: METOPROLOL SUCCINATE 25 MG TAB XL PO SCH (09:00)
[2019-02-08] MEDS: PANTOPRAZOLE 40 MG 10ML VIAL IV SCH ×2 (09:58→18:06)
--- NOTE | 2019-02-08 10:20 | NUR ---
ST note: Order for bedside swallow eval noted. Attempted to complete eval but pt off floor for CT. Will return later today.
[2019-02-08] MEDS ORDERED: DIATRIZOATE MEGL/DIATRIZOA SOD 30 ML BTL PO ONE (10:55)
--- NOTE | 2019-02-08 12:17 | History and Physical ---
CHIEF COMPLAINT: An 78-year-old female comes in with acute mental status changes. HISTORY OF PRESENT ILLNESS: Ms. Karen Cooper 78-year-old female with a history of pacemaker placement, history of recent knee replacement by Dr. Marie, was in usual state of health until the patient was talking to her daughter when her sister suddenly felt that she became aphasic, word salads were noticed and the patient started to have anxiety attacks and acute shortness of breath and also impaired speech. The patient came into the emergency room, was admitted for possible TIA/stroke. PAST MEDICAL HISTORY: History of congestive heart failure, history of pacemaker placement, history of hypertension, history of hyperlipidemia, history of anxiety and history of insomnia. PAST SURGICAL HISTORY: History of bladder suspension, hysterectomy, history of right knee surgery. The patient also has been complaining of the right knee pain with some ecchymosis in the lower extremities. MEDICATIONS: The patient takes her aspirin 81 mg, ibuprofen 400 mg as needed, lisinopril 2.5 mg daily, losartan 100 mg daily, metoprolol 25 mg daily, pravastatin 10 mg daily, tramadol 50 mg for pain and vitamin D. ALLERGIES: ALLERGIC TO PENICILLIN. SOCIAL HISTORY: No EtOH, no IV drug abuse. The patient is a and no history of smoking either. FAMILY HISTORY: Positive for hypertension, heart disease, and also CVA. REVIEW OF SYSTEMS: Negative for chest pain. No shortness of breath. No nausea, vomiting, or diarrhea. No constipation. No rectal bleeding. No hematochezia. No hematemesis. Positive for sudden change in mental status and also the lack of eating. The patient has not been eating for the last three days, did not want food and has been eating a piece of toast every single day. PHYSICAL EXAMINATION: VITAL SIGNS: Temperature is 98.2, pulse of 99, respirations of 21, blood pressure is 152/85, pulse oximetry of 100% on 2 L of oxygen. HEENT: Normocephalic, atraumatic. No facial grimacing. Facial droop noted. CVS: S1, S2 normal. Regular rate and rhythm. LUNGS: Clear to auscultation bilaterally. ABDOMEN: Nontender, nondistended. EXTREMITIES: No clubbing, no cyanosis, no edema. NEUROLOGIC: Cranial nerves normal. The patient's motor strength very good in all extremities, in all muscle groups. Reflexes 2+ in all extremities. The patient's speech is normal at this time, but apparently the whole night the patient had word salad and was not making any sense. LABORATORY VALUES: The patient's white count yesterday was 5.6, hemoglobin 11.9, hematocrit 35.8. Chemistries, sodium 141, potassium 4.1, BUN 13, creatinine of 1.01. Her lactic acid was 21.5. Creatine kinase was 189. The second set troponins negative x2. MICROBIOLOGY: Urine culture preliminary shows no growth and holding. Blood cultures are pending. ASSESSMENT: 1. Acute mental status changes, questionable transient ischemic attack. 2. Elevated lactic acid. 3. History of recent right knee surgery. PLAN: Plan is to do a CT angio of the brain and neck. The patient's brain CT, chest CT, and chest x-rays are essentially normal. Chest CT did show bilateral pulmonary nodules, which has to be followed up in 36 months and also diffuse esophageal thickening of the esophagus, which could attribute to her not vomiting. We will start the patient on some Protonix too. Consult for Dr. Grant has been done. We will continue monitoring her vitals and also Dimple has been given one dose 5 mg IM and also Ativan 0.25. We will try to not over sedate the patient. Further recommendation per clinical course and also depending on the CTA brain and CTA of neck, had also done a venous Doppler of the right lower extremity and also we will do an echocardiogram. Further recommendation per clinical course. We will continue to monitor the patient along with consultants. MD JAMAICA Richardson/MYKEL /[id number]
--- NOTE | 2019-02-08 13:38 | Diagnostic Imaging Report ---
EXAMINATION: CT angiogram of the [place] and neck with contrast CLINICAL HISTORY: Cerebrovascular accident, alteration of consciousness, kidney disease. COMPARISON: None available TECHNIQUE: The head and neck was scanned utilizing a multidetector helical scanner from the thoracic inlet to the vertex after the I.V contrast administration of 100 mL of Isovue-370. Multiplanar sagittal and coronal reconstructions were performed as well. For optimization of of anatomic evaluation, multi-planar reconstructions, maximum intensity projections, and advanced 3D off-line post-processing was obtained and performed on a dedicated stand-alone workstation under the direct supervision of the interpreting physician. Dose modulation, iterative reconstruction, and/or weight based adjustment of the mA/kV was utilized to reduce the radiation dose to as low as reasonably achievable. FINDINGS: The are no areas of abnormal density or enhancement in the brain. There is no mass, hemorrhage or extra-axial fluid collection. The CSF containing spaces are normal in size, position and configuration. CT ANGIOGRAM OF THE [place]: The internal carotid artery segments as well as the middle cerebral and anterior cerebral arteries are normal in caliber. The vertebro-basilar circulation is normal. No vascular malformation or aneurysmal dilatation is seen. The draining venous structures are normal and patent. Anatomic variation: Anterior Communicating Artery: Patent Posterior Communicating Arteries: Patent bilaterally with small infundibulum on the right side. Vertebral arteries: Codominant. The left vertebral artery is taking off directly from the aortic arch. CT ANGIOGRAM OF THE NECK: If present, stenosis of the carotid bulbs is measured based on NASCET criteria i.e area of maximum stenosis compared to the cervical ICA distal to the bulb. Minimal calcified atherosclerotic change in the bilateral carotid bifurcations and carotid bulbs without associated stenosis (0%). The origin of the vessels is patent bilaterally. Right Carotid Artery: The common carotid, internal and external carotid arteries at the level of the neck are normal in caliber, and patent, no evidence of stenoses. Left carotid artery: The common carotid, internal and external carotid arteries at the level of the neck are normal in caliber, and patent, no evidence of stenoses. Vertebral Arteries: Both are normal in morphology and caliber. Both are codominant. No significant stenosis is seen. IMPRESSION: Within normal limits CT angiogram of the head and neck, particularly no large vessel occlusion or hemodynamically significant stenosis of the carotid or vertebral arteries in the head or neck. Signed by: Dr. Mary Ann Mulligan M.D. on 02/08/2019 1:35 PM
[2019-02-08 15:02] LABS: CREATINE KINASE MB 3.5 ng/mL (0-5.0)
[2019-02-08] MEDS ORDERED: SODIUM CHLORIDE 0.9% 100 ML 100 ML ONE (15:06)
[2019-02-08] MEDS ORDERED: IOPAMIDOL 370 MG/ML 200 ML INFUS..BTL INJ ONE (15:06)
[2019-02-08] MEDS ORDERED: HYDRALAZINE HCL 20 MG/ML VIAL IV PRN (16:30)
[2019-02-08] MEDS ORDERED: METOPROLOL TARTRATE INJ 1 MG/ML VIAL IV PRN (16:30)
--- NOTE | 2019-02-08 20:41 | NUR ---
called and spoke with dr Berrios, clarifying diet order, per MD put patient on NPO for now.
[2019-02-08] MEDS: PRAVASTATIN 20 MG TAB PO SCH (20:46)
--- NOTE | 2019-02-08 21:35 | Consultation ---
DATE OF CONSULTATION: 02/08/2019 HISTORY OF PRESENT ILLNESS: Ms. Cooper is an 78-year-old right-hand dominant woman with past medical history significant for hypertension, hyperlipidemia, prediabetes, and a prior transient ischemic attack, admitted to [facility] on February 07, 2019 with symptoms concerning for a transient ischemic attack or stroke. Ms. Cooper was in her usual state of health until approximately 1100 on the day of admission. At that time, the patient experienced the sudden onset of expressive aphasia. Her sister, who is at the bedside and witnessed the onset of symptoms, reports the patient was speaking "gibberish." There were no other symptoms associated with the abrupt onset of expressive aphasia. Ms. Cooper does not report a visual field cut or other disturbance, dysarthria, receptive aphasia, weakness, numbness, dizziness, or confusion associated with the expressive aphasia. The patient did not attempt to walk while she experienced the expressive aphasia. Therefore, the patient cannot say whether or not her balance or gait was affected. Following the onset of the above described symptom, Ms. Cooper was brought to the emergency center for further evaluation of her symptoms. Upon arrival in the emergency center, the patient was afebrile with a blood pressure of 127/85 mmHg and a pulse of 92 beats per minute. Upon admission to the emergency center, Ms. Cooper was tachypneic with a respiratory rate of 38 breaths per minute. Her oxygen saturation was 100% on room air. Documentation of the patient's neurological examination is not available for review. A CT of the brain without contrast was performed while the patient was in the emergency center. This study did not reveal evidence of recent large territorial ischemia or hemorrhage. Due to the patient's tachypnea, there was concern for possible pulmonary embolus. Therefore, Ms. Cooper was admitted to the intensive care unit at [facility] for further evaluation and treatment of her symptoms. I was contacted by the night shift supervisor nurse caring for Ms. Cooper on the evening of February 07, 2019. According to the nurse, the patient was "talking out of her head" and appeared anxious/agitated. According to the dayshift nurse, who has cared for Ms. Cooper on the day of evaluation, her speech has been "perfectly clear" without dysarthria, expressive aphasia, or receptive aphasia. The nurse does report the patient is only oriented to person and place. At times, the patient has only been oriented to person. Of note, at approximately 1530 on the day of evaluation, Ms. Cooper once again exhibits expressive aphasia with possible mild dysarthria. The symptoms have resolved at the time of her neurological evaluation approximately 30-45 minutes later. When the patient's family members are asked about the duration and severity of the patient's symptoms, Ms. Cooper's sister reports her symptoms have significantly improved over the past 24 hours, but have never resolved. Ms. Cooper does report "some anxiety" related to her hospitalization. Furthermore, her sister reports answering multiple questions does make the patient anxious. When asked if she was upset or anxious at the time of symptom onset, the patient replies "I guess so." Ms. Cooper has not experienced similar symptoms previously. She does take aspirin 81 mg by mouth twice daily at the instruction of her physicians. Ms. Cooper reports compliance with this recommendation. However, the patient's sister reports Ms. Cooper does forget to take her medications, especially if she has to take a medicine more than once a day. When asked if there are any concerns regarding memory loss or other cognitive impairment, the patient's sister responds as follows; "no more so than any other old person." REVIEW OF SYSTEMS: Shortness of breath, confusion, expressive aphasia, anxiety. Otherwise, a 12- point review of systems is negative. PAST MEDICAL HISTORY: Hypertension, hyperlipidemia, prediabetes, congestive heart failure, chronic kidney disease stage IIIA, anxiety disorder, prior transient ischemic attack. PAST SURGICAL HISTORY: Right knee replacement, hysterectomy, hemorrhoidectomy, appendectomy, pacemaker implantation. PAST HOSPITALIZATIONS: Surgeries/procedures as listed, congestive heart failure exacerbation, transient ischemic attack. FAMILY MEDICAL HISTORY: Diabetes mellitus, coronary artery disease/heart disease, strokes. SOCIAL HISTORY: Ms. Cooper is . She is retired. The patient does not report current or prior tobacco, alcohol, or recreational drug use. HOME MEDICATIONS: Aspirin 81 mg by mouth twice daily, lisinopril 2.5 mg by mouth daily, losartan 50 mg by mouth daily, metoprolol 25 mg by mouth daily, pravastatin 10 mg by mouth daily, vitamin D 1 tablet by mouth daily, ibuprofen 800 mg by mouth every 8 hours as needed for pain, tramadol 50 mg by mouth every 6 hours as needed for pain. HOSPITAL MEDICATIONS: Albuterol, aspirin, cefepime, hydralazine, lisinopril, lorazepam, losartan, metoprolol, pravastatin, Zofran, Protonix. ALLERGIES: PENICILLIN. NO KNOWN FOOD ALLERGIES. NO KNOWN ALLERGIES TO LATEX. NO KNOWN ALLERGIES TO IODINE OR OTHER CONTRAST MATERIALS. PHYSICAL EXAMINATION: VITAL SIGNS: Height 67 inches, weight 151 pounds, BMI 23.7 kg/m2, blood pressure 136/58 mmHg, pulse 86 beats per minute, respiratory rate 20 breaths per minute, and oxygen saturation 100% on 2 L by nasal cannula. GENERAL: The patient is awake and alert, does not appear distressed. HEENT: Normocephalic, atraumatic. Pupils are equal, round, and reactive to light. Moist mucous membranes. NECK: Supple. No appreciable thyromegaly. No appreciable carotid bruits. CARDIOVASCULAR: S1, S2, regular rate and rhythm. No murmurs, rubs, or gallops. RESPIRATORY: Clear to auscultation bilaterally. No wheezes, rhonchi, or rales. EXTREMITIES: The skin is warm and dry. No clubbing, cyanosis, or edema. The posterior tibial and dorsalis pedis pulses are 2+ and symmetric. SKIN: No rashes or lesions. NEUROLOGIC: Memory/Attention: The patient is awake and alert, oriented to person, place (hospital, city, state), time (month only), but not to situation. Cranial Nerves: Cranial nerve I - not tested. Cranial nerve II, III, IV, and - pupils are equal and round, react briskly to light (from 4 mm to 2 mm). Extraocular movements intact. No nystagmus. Cranial nerve V - sensation to light touch and pinprick is intact in the bilateral V1 through V3 distributions. Strength in the temporalis and masseter muscles are within normal limits. Cranial nerve VII - the face is symmetric as are all facial movements. Strength is within normal limits. Cranial nerve VIII - hearing is intact to finger rub bilaterally. Cranial nerve 9, 10- the soft palate elevates equally and symmetrically. Cranial nerve XI - normal strength of the bilateral sternocleidomastoid and trapezius muscles. Cranial nerve XII - the tongue protrudes midline and moves symmetrically from [id number]. Strength: Bulk is normal. Strength is 5/5 in the bilateral deltoids, biceps, triceps, wrist flexors and extensors, finger flexors and extensors, intrinsic hand muscles, hip flexors, knee flexors and extensors, ankle dorsiflexion and plantar flexion, and intrinsic foot muscles. Tone is normal. DTRs: Deep tendon reflexes are 2+ and symmetric at the triceps, biceps, brachioradialis, and patellas. Deep tendon reflexes are absent and symmetric at the Achilles. Plantar responses are flexor bilaterally. The frontal release signs are noted. Sensation: Sensation is intact to light touch and pinprick in both arms and both legs. Cerebellar: Sdlrzt-gkay-dexnzh and heel-hewitt movements are intact without dysmetria or other impairment. Gait: Deferred. Speech: Spontaneous speech is normal without appreciable dysarthria. The patient does appear to have word-finding difficulties. Repetition is intact. Involuntary movements: None. Pronator Drift: None. LABORATORY DATA: The patient's most recent basic metabolic panel is significant for an anion gap of 16.1 with an estimated GFR of 49. Liver function panel collected on February 07, 2019 is unremarkable. B-natriuretic peptide 18.2. Lactic acid 21.5. Cardiac enzymes are negative x4. CBC with differential and platelets reveals a white blood cell count of 6.45 with a normal differential. The hemoglobin and hematocrit are 9.1 and 27.7, respectively. The platelet count is 153. The coagulation profile is within normal limits. A quantitative D-dimer is elevated at 4.40. Urinalysis is significant for 6-10 white blood cells with 11-15 hyaline casts. A urine culture collected on February 07, 2019 is pending. Blood cultures collected on February 07, 2019 revealed no growth after 24 hours. DIAGNOSTIC STUDIES: 1. Chest x-ray on 02/07/2019: No acute radiographic abnormality. 2. Chest CT 02/07/2019: No evidence of pulmonary embolism to the level of the segmental pulmonary arteries. Bilateral pulmonary nodules, measuring up to 7 mm in the right lower lobe. Follow up CT is recommended in 3-6 months. Diffuse mild esophageal wall thickening which may represent esophagitis. If clinically indicated, followup EGD may be considered. 3. CT of the brain without contrast of 02/07/2019: On my review, there is no evidence of recent or remote large territorial ischemia, hemorrhage, mass, or mass effect. There is diffuse cerebral atrophy with compensatory dilatation of the ventricles, appropriate for the patient's age. There are findings compatible with mild chronic small- vessel ischemic disease. 4. CTA of the head and neck 02/08/2019: Unremarkable CT angiogram of the head and neck. 5. Electrocardiogram of 02/08/2019: Electronic ventricular pacemaker at 77 beats per minute. 6. Echocardiogram 02/08/2019: Ejection fraction 50% to 55%. Left ventricular hypertrophy. Trace mitral regurgitation. Mild tricuspid regurgitation and pulmonic insufficiency. 7. Bilateral lower extremity ultrasound with Doppler 02/08/2019: No evidence of deep venous thrombosis. 8. Chest x-ray 02/08/2019: No acute cardiopulmonary abnormalities. ASSESSMENT AND PLAN: Ms. Cooper is an 78-year-old right-hand dominant woman with past medical history as detailed, admitted to [facility] on February 07, 2019 with altered mental status and acute kidney injury with suspicion for a transient ischemic attack or stroke. The patient's neurological examination is significant for disorientation to time and situation, positive frontal release signs, and word- finding difficulties. The patient's laboratory data and other diagnostic studies have been reviewed and are documented above. Given the persistent, yet fluctuating nature, of the patient's speech disturbance, there is low suspicion for transient ischemic attack. Furthermore, at present, the patient's speech disturbance has been present for approximately 32 hours. A transient ischemic attack by definition persists for less than 24 hours. In reality, the majority of transient ischemic attacks persist for 10 minutes or less. There is no evidence of a stroke on the patient's neuroimaging studies. Therefore, this is not the cause of the patient's symptoms. Based on the description of the patient's symptoms as well as findings on the neurological examination, I strongly suspect Ms. Cooper has an underlying dementia, probably of the Alzheimer's type. This would account for her word-finding difficulties as well as the symptoms described by the night shift supervisor nurse (ing). The acute exacerbation of the patient's underlying symptoms may be due to dehydration, an underlying infection, anxiety attack, etc. RECOMMENDATIONS: Are as follows: 1. Additional blood work will be ordered as part of an evaluation for dementia. That blood work will include: TSH, vitamin B12 level, ammonia, and rapid plasma reagin. 2. Further evaluation for an underlying memory disorder is recommended as an outpatient. Evaluation and treatment of a patient for an underlying memory disorder is suboptimal during an acute hospitalization. 3. Defer treatment of the remaining medical comorbidities to the primary and other services following the patient. Thank you for this consultation. Other than the few additional laboratory studies ordered, there are no other recommendations from the Neurology Service at this time. As stated above, Ms. Cooper is encouraged to follow up as an outpatient for further evaluation and treatment of possible dementia. TIME SPENT: 70 minutes. Neha Grant MD CP/GOPAL /[id number] MTDD
[2019-02-09] VITALS (10 sets, daily range): BP systolic 132–154; BP diastolic 54–72
[2019-02-09] MEDS: ALBUTEROL SULF 0.083% NEB SOLN 3 ML NEB NEB SCH ×4 (01:10→19:30)
[2019-02-09] MEDS: CEFEPIME 1GM/NS 0.9% 50 ML 50 ML IV SCH ×2 (05:37→18:02)
--- NOTE | 2019-02-09 07:42 | Progress Note ---
DATE: 02/09/2019 SUBJECTIVE: The patient is an 78-year-old female, who comes with acute mental status changes. The patient had an elevated D-dimer. The patient's CT scan was negative. So far, blood culture negative. The patient is responding to verbal stimuli and talking and has no cognitive deficits at this time and/or focal deficits. Neurologically, the patient is stable; however, failed her swallow evaluation yesterday. The patient is to do an MBS today to address the nutrition issue. Currently asymptomatic. The patient's family has been by the bedside and is happy with her progress. OBJECTIVE: VITAL SIGNS: Temperature is 97.4, T-max of 99.1, pulse of 74, respirations of 22, blood pressure is 154/63, pulse oximetry 100% on 2 L of nasal cannula. HEENT: Normocephalic, atraumatic. Pupils are reactive to light and accommodation. CVS: S1 and S2 normal. Regular rate and rhythm. No facial droop present. ABDOMEN: Nontender, nondistended. LUNGS: Clear to auscultation. MEDICATIONS: At this time, cefepime q.12 hours, pantoprazole 40 mg twice a day, lorazepam 0.25 mg q.6 hours as needed, metoprolol 25 mg daily, losartan 50 mg, lisinopril 2.5, aspirin 81, hydralazine 10 IV q.6 hours, metoprolol 2.5 IV q.6 hours. LABORATORY VALUES: Today's white count is 6.45, hemoglobin of 9.1, hematocrit of 27.7. Chemistries from yesterday BUN of 13, creatinine of 1.07. ASSESSMENT: 1. Acute mental status changes. 2. Transient ischemic attack. 3. No cerebrovascular accident noted. 4. Hypertension. 5. History of pacemaker placement. 6. Dementia as per Neurology. 7. Hyperlipidemia. 8. The patient with hypertension. PLAN: 1. Plan is to get physical therapy to get her out of bed and ambulate her today. 2. Swallow evaluation is planned. 3. Continue on antihypertensive. 4. The patient will restart her medications if MBS is negative. At this time, we will continue to monitor the patient. Additional diagnoses include acute kidney injury, which has resolved and anemia of uncertain origin. The patient's cultures have been negative. Urine cultures show no growth and blood cultures have no growth either. Further recommendation per clinical course. The patient can be transferred out of the ICU. MD JAMAICA Richardson/GOPAL /[id number]
[2019-02-09] MEDS: PANTOPRAZOLE 40 MG 10ML VIAL IV SCH ×2 (07:54→16:41)
[2019-02-09] MEDS: ASPIRIN 81 MG CHEW TAB PO SCH (07:54)
[2019-02-09] MEDS: LOSARTAN POTASSIUM 25 MG TAB PO SCH (07:54)
[2019-02-09] MEDS: LISINOPRIL 2.5 MG TAB PO SCH (07:55)
[2019-02-09] MEDS: METOPROLOL SUCCINATE 25 MG TAB XL PO SCH (07:55)
--- NOTE | 2019-02-09 13:08 | NUR ---
DISCUSSED IN BARRIER ROUNDS, PT POSSIBLE TIA, NEG CULTURES, MBS TODAY; NO ASPIRATION, NMES, PT TO EVALUATE, PT HAS MED SURG ORDERS.
--- NOTE | 2019-02-09 18:49 | NUR ---
nursing report given to manager night RN jesse and gustabo
--- NOTE | 2019-02-09 20:00 | NUR ---
Received pt at shift change, orders to transfer to [place] with telemetry. VS WNL, denies pain, AAx4, multiple family members at bedside. patient transfered to room 102, report given to RENA Sanders.
--- NOTE | 2019-02-09 20:30 | NUR ---
Received transfer report from [facility]. Patient arrived on wheelchair and was able to ambulate to the bed. Patient is A/Ox4, reported no pain and not in distress. Bed height set low, side rails up x2, call light within reach and family member at bedside for the night. Patient had right TKA about a month ago by Dr. Marie and has own walker to ambulate to the toilet. Monitor patient for altered mental status.
[2019-02-09] MEDS: PRAVASTATIN 20 MG TAB PO SCH (21:16)
[2019-02-10] VITALS (8 sets, daily range): BP systolic 138–176; BP diastolic 66–80
[2019-02-10] MEDS: ALBUTEROL SULF 0.083% NEB SOLN 3 ML NEB NEB SCH ×4 (01:20→19:38)
[2019-02-10] MEDS ORDERED: SODIUM CHLORIDE 0.9% 50ML 50 ML ONE (05:22)
[2019-02-10] MEDS: CEFEPIME 1GM/NS 0.9% 50 ML 50 ML IV SCH ×2 (05:30→16:20)
[2019-02-10 06:08] LABS: BASOPHILS # (AUTO) 0.1 (0.0-0.1); BASOPHILS % 0.9 % (0.0-1.0); EOSINOPHILS # (AUTO) 0.2 (0.0-0.4); HEMATOCRIT 29.1 % (34.2-44.1); HEMOGLOBIN 9.6 g/dL (12.0-16.0); LYMPHOCYTES # (AUTO) 1.2 (1.0-3.2); LYMPHOCYTES % 20.1 % (18.0-39.1); MEAN CORPUSCULAR VOLUME 87.9 fL (81-99); MONOCYTES # (AUTO) 0.4 (0.2-0.8); NEUTROPHILS # (AUTO) 3.9 (2.1-6.9); NEUTROPHILS % 68.7 % (38.7-80.0); PLATELET COUNT 148 x10e3/uL (140-360); RED BLOOD COUNT 3.31 x10e6/uL (3.6-5.1); RED CELL DISTRIBUTION WIDTH 13.3 % (11.7-14.4)
[2019-02-10 06:30] LABS: ANION GAP 13.5 mmol/L (8-16); BLOOD UREA NITROGEN 10 mg/dL (7-26); BUN/CREATININE RATIO 12 (6-25); CALCIUM 9.8 mg/dL (8.4-10.2); CARBON DIOXIDE 24 mmol/L (22-29); CHLORIDE 106 mmol/L (98-107); CREATININE, SERUM 0.81 mg/dL (0.57-1.11); EST GLOMERULAR FILTRATION RATE > 60 ML/MIN (60-); GLUCOSE 112 mg/dL (74-118); POTASSIUM 3.5 mmol/L (3.5-5.1); SODIUM 140 mmol/L (136-145)
--- NOTE | 2019-02-10 07:33 | NUR ---
RECEIVED PATIENT AWAKE RESTING IN BED NO SIGNS OF DISTRESS. BED LOW, WHEELS LOCKED, SIDE RAILS X2. CALL LIGHT IN REACH. WILL CONTINUE TO MONITOR PATIENT.
[2019-02-10] MEDS: ASPIRIN 81 MG CHEW TAB PO SCH (08:07)
[2019-02-10] MEDS: LOSARTAN POTASSIUM 25 MG TAB PO SCH (08:07)
[2019-02-10] MEDS: LISINOPRIL 2.5 MG TAB PO SCH (08:07)
[2019-02-10] MEDS: PANTOPRAZOLE 40 MG 10ML VIAL IV SCH (08:07)
[2019-02-10] MEDS: METOPROLOL SUCCINATE 25 MG TAB XL PO SCH (08:07)
--- NOTE | 2019-02-10 10:12 | NUR ---
NOTIFIED DR. SAGE OF PATIENTS IV LEAKING AND REFUSING NEW IV. ORDER TO SWITCH PROTONIX AND ZOFRAN TO PO. NEW ORDERS IMPLEMENTED.
[2019-02-10] MEDS: ONDANSETRON HCL 4 MG ORAL DISINTEGRATING TAB PO PRN ×2 (10:20→16:49)
--- NOTE | 2019-02-10 12:59 | NUR ---
CM SPOKE TO PATIENT AT BEDSIDE REGARDING HOME HEALTH FOR PT/ OT RECOMMENDED BY PT. PATIENT REFUSES HOME HEALTH SERVICES. PATIENT STATES SHE WAS GOING TO OUTPATIENT PHYSICAL THERAPY AND ONLY HAD TWO SESSIONS LEFT; HOWEVER, SHE HAD NO PLANS TO GO TO THE LAST TWO SESSIONS. PATIENT STATES SHE LIVES WITH HER SISTER AND RECEIVES GOOD CARE AT HOME. PATIENT GIVEN RISKS OF FALLS AND RISKS IF INJURED BY FALLS. PATIENT STILL REFUSES HOME HEALTH SERVICES. PATIENT ADVISED IF SHE CHANGES HER MIND AFTER DISCHARGE TO GO TO PCP AND THEY CAN SET UP HOME HEALTH SERVICES WELL. PATIENT VERBALLY UNDERSTOOD AND REQUESTS CM CLOSE DOOR WHEN LEAVING. CM LEFT CONTACT INFO AND CLOSED DOOR.
--- NOTE | 2019-02-10 13:28 | Diagnostic Imaging Report ---
PROCEDURE:X-RAY MODIFIED BARIUM SWALLOW COMPARISON:None. INDICATIONS:Not provided. Fluoroscopy time: 2.6 minutes DAP: 2.48 Gycm2 DISCUSSION:Fluoroscopic examination was performed in conjunction with speech pathology, during swallowing of a variety of thin and thick liquid consistencies. CONCLUSION:Laryngeal penetration noted with administration of thin consistency. No tracheal aspiration. Please see the report from speech pathology for complete details. Dictated by: Rusty Licona M.D. on 02/10/2019 at 13:32 Electronically approved by: Rusty Licona M.D. on 02/10/2019 at 13:32
--- NOTE | 2019-02-10 15:49 | NUR ---
EDUCATED ABOUT IMM, SIGNED, FILED IN CHART, WITH COPY LEFT WITH FAMILY AT BEDSIDE.
[2019-02-10] MEDS: PANTOPRAZOLE SOD 40 MG TABEC PO SCH (16:49)
--- NOTE | 2019-02-10 19:06 | Progress Note ---
DATE: 02/10/2019 SUBJECTIVE: The patient comes in with acute mental status changes, much better today. Swallow evaluation of spasm. The patient is tolerating food. No complaints and was able to walk with physical therapy. No chest pain. No shortness of breath. No nausea, vomiting, or diarrhea. No constipation. No rectal bleeding. OBJECTIVE: VITAL SIGNS: Temperature is 98.7, pulse 78, respirations of 18, blood pressure is 165/70. The patient is saturating on room air with a pulse ox of 96%. HEENT: Normocephalic, atraumatic. Pupils are reactive to light and accommodation. CVS: S1, S2 normal. Regular rate and rhythm. ABDOMEN: Nontender, nondistended. EXTREMITIES: No clubbing, no cyanosis, no edema. NEUROLOGIC: Alert and oriented x3. No cranial nerve deficits. No motor deficits. No sensory deficits. The patient is stable. MICROBIOLOGY: Urine cultures negative. Blood cultures negative. ASSESSMENT: 1. Acute mental status changes. 2. Transient ischemic attack. 3. Hypertension. 4. History of pacemaker placement. 5. History of dementia. 6. Hyperlipidemia. PLAN: Plan is to continue to monitor the patient. The patient can be discharged tomorrow in the morning. Further recommendation per clinical course. We will continue to monitor the patient. All her home medications were reinstated at this point in time. MD ARASELI RichardsonJ/MODL /[id number]
[2019-02-10] MEDS: PRAVASTATIN 20 MG TAB PO SCH (21:42)
--- NOTE | 2019-02-10 22:54 | NUR ---
Assessment done.no resp.distress.iv tube removed and applied pressures dressing.refused to start new iv. is aware of that.bed locked and in lowest position.phone and call light within reach.instructed to call for assistance as needed.
--- NOTE | 2019-02-10 23:30 | NUR ---
Blood pressure noted high.call placed to .waiting for the reply.
[2019-02-11 00:06] VITALS: BP 181/81
--- NOTE | 2019-02-11 00:13 | NUR ---
Bp checked manually and noted 160/84 mmof hg.
[2019-02-11] MEDS: ALBUTEROL SULF 0.083% NEB SOLN 3 ML NEB NEB SCH ×2 (01:00→07:19)
[2019-02-11] MEDS: ONDANSETRON HCL 4 MG ORAL DISINTEGRATING TAB PO PRN (02:18)
[2019-02-11 05:22] VITALS: BP 186/77
[2019-02-11] MEDS: CEFEPIME 1GM/NS 0.9% 50 ML 50 ML IV SCH (05:39)
[2019-02-11 05:42] LABS: BASOPHILS % 0.6 % (0.0-1.0); EOSINOPHILS # (AUTO) 0.1 (0.0-0.4); EOSINOPHILS % 2.1 % (0.0-6.0); HEMATOCRIT 30.5 % (34.2-44.1); HEMOGLOBIN 9.8 g/dL (12.0-16.0); LYMPHOCYTES # (AUTO) 1.2 (1.0-3.2); LYMPHOCYTES % 18.6 % (18.0-39.1); MEAN CORPUSCULAR HEMOGLOBIN 28.6 pg (28-32); MEAN CORPUSCULAR HGB CONC 32.1 g/dL (31-35); MEAN CORPUSCULAR VOLUME 88.9 fL (81-99); MONOCYTES # (AUTO) 0.4 (0.2-0.8); MONOCYTES % 6.7 % (4.4-11.3); NEUTROPHILS # (AUTO) 4.5 (2.1-6.9); NEUTROPHILS % 71.4 % (38.7-80.0); PLATELET COUNT 154 x10e3/uL (140-360); RED BLOOD COUNT 3.43 x10e6/uL (3.6-5.1); RED CELL DISTRIBUTION WIDTH 13.3 % (11.7-14.4)
[2019-02-11] MEDS: LOSARTAN POTASSIUM 25 MG TAB PO SCH (06:00)
[2019-02-11 06:01] LABS: ANION GAP 14.4 mmol/L (8-16); BLOOD UREA NITROGEN 9 mg/dL (7-26); BUN/CREATININE RATIO 11 (6-25); CALCIUM 9.7 mg/dL (8.4-10.2); CARBON DIOXIDE 24 mmol/L (22-29); CHLORIDE 106 mmol/L (98-107); CREATININE, SERUM 0.85 mg/dL (0.57-1.11); EST GLOMERULAR FILTRATION RATE > 60 ML/MIN (60-); GLUCOSE 107 mg/dL (74-118); POTASSIUM 3.4 mmol/L (3.5-5.1); SODIUM 141 mmol/L (136-145)
--- NOTE | 2019-02-11 06:01 | NUR ---
B p is 186/77 mm of hg.cozar 50 mg po given.keep monitor the pt.
--- NOTE | 2019-02-11 06:53 | NUR ---
Bed side shift report given to the oncoming rn.stable condition.
--- NOTE | 2019-02-11 07:14 | NUR ---
RECEIVED PATIENT AWAKE RESTING IN BED. NO SIGNS OF DISTRESS. BED LOW, WHEELS LOCKED, SIDE RAILS X2. CALL LIGHT IN REACH WILL CONTINUE TO MONITOR PATIENT.
[2019-02-11] MEDS: ASPIRIN 81 MG CHEW TAB PO SCH (08:00)
[2019-02-11] MEDS: PANTOPRAZOLE SOD 40 MG TABEC PO SCH (08:00)
[2019-02-11] MEDS: LISINOPRIL 2.5 MG TAB PO SCH (08:00)
[2019-02-11 08:01] VITALS: BP 163/70
[2019-02-11] MEDS: METOPROLOL SUCCINATE 25 MG TAB XL PO SCH (08:01)
--- NOTE | 2019-02-11 08:18 | NUR ---
PATIENT DISCHARGED FROM FACILITY. PATIENT GATHERED ALL PERSONAL BELONGINGS AND DISCHARGE INSTRUCTIONS. LEFT UNIT IN WHEELCHAIR AND WENT HOME VIA PRIVATE AUTO. NO SIGNS OF DISTRESS. WHEN LEAVING FACILITY.
--- NOTE | 2019-02-11 08:28 | Progress Note ---
DATE: 02/11/2019 SUBJECTIVE: The patient is here for acute mental status changes. CT scan, CTA, and echo have been all normal. The patient's cognitive status has improved. No chest pain. No shortness of breath. No nausea, vomiting, or diarrhea. The patient is getting her medications. MEDICATIONS: Include albuterol, aspirin, cefepime, hydralazine, lisinopril, lorazepam, losartan, metoprolol, and pantoprazole. OBJECTIVE: VITAL SIGNS: Temperature is 97.5, afebrile for the last 48 hours; blood pressure is 186/77, and pulse oximetry of 97%. HEENT: Normocephalic and atraumatic. Pupils are reactive to light and accommodation. CVS: S1 and S2, irregular. ABDOMEN: Nontender and nondistended. EXTREMITIES: No clubbing, no cyanosis, and no edema. LABORATORY DATA: The patient's white count today was 6.29, hemoglobin of 9.8, and hematocrit 30.5. Chemistry; sodium of 141, potassium 3.4, BUN of 9, creatinine of 0.85. TSH is normal, is 1.39. MICROBIOLOGY: Urine cultures, no growth. Blood cultures, no growth x2. ASSESSMENT: Acute mental status changes, toxic versus metabolic encephalopathy; transient ischemic attack, hypertension, history of pacemaker placement, and history of hyperlipidemia. PLAN: Continue treatment, can be discharged home. Restart her home medications. The patient will be seen by me in about a week's time, also by Dr. Swanson in about a week's time. Further recommendation per clinical course. The patient can be discharged home today. MD JAMAICA Richardson/MYKEL /[id number]
--- NOTE | 2019-05-02 03:27 | Discharge Summary ---
HOSPITAL COURSE: The patient was brought to the hospital for acute mental status changes. CT scan was done. CTA was done. Echo was done. The patient showed all normal activity. The patient's cognitive status improved just with hydration and waiting. The patient had no nausea, vomiting, or diarrhea during the entire stay. The patient was restarted on home medication including lorazepam. A possible etiology could be medicine-induced encephalopathy. Dr. Grant was consulted. No stroke was diagnosed. The patient was feeling better. The patient discharged home. FINAL DIAGNOSES: 1. Acute mental status changes. 2. Toxic versus metabolic encephalopathy. 3. Transient ischemic attack. 4. Hypertension. 5. History of pacemaker placement. 6. History of hyperlipidemia. PLAN: Continue with current medication. Follow up with Dr. Swanson. Follow up with Dr. Grant and me in about a week's time. Further recommendation as per clinical course. The patient will be followed up with me and consult on a later date. For further information, look in the chart. MD JAMAICA Richardson/MODL /[id number]
== END 2019-02-11 08:18 | disposition home or self-care (01) | DRG 947 ==
LOC: ER 14:12 → ERHOLD 18:17 → ICU 18:43 → MED/SURG 02-09 20:20
PROVIDERS: ADMIT Family Medicine; ATTEND Family Medicine
DX: R41.82 Altered mental status, unspecified (principal); G92 Toxic encephalopathy; N17.9 Acute kidney failure, unspecified; Z88.0 Allergy status to penicillin; I11.0 Hypertensive heart disease with heart failure; I50.9 Heart failure, unspecified; Z96.651 Presence of right artificial knee joint; Z95.0 Presence of cardiac pacemaker; E78.5 Hyperlipidemia, unspecified; F41.9 Anxiety disorder, unspecified; R74.0 Nonspecific elevation of levels of transaminase and lactic acid dehydrogenase [LDH]; R73.03 Prediabetes; G30.9 Alzheimer's disease, unspecified; F02.80 Dementia in other diseases classified elsewhere, unspecified severity, without behavioral disturbance, psychotic disturbance, mood disturbance, and anxiety; D64.9 Anemia, unspecified; R47.89 Other speech disturbances
CPT/HCPCS: 36415; 70450; 70496; 70498; 71045; 71260; 74230; 80048; 80053; 81001; 82140; 82550; 82553; 82607; 83605; 83880; 84443; 84484; 85025; 85379; 85610; 85730; 86592; 87040; 87086; 93005; 93306; 93970; 94640; 97139; 99284; J0692; J2060; J2405; J3370; J3486; J7030; J7040; Q0162; Q9967

== ENCOUNTER 2020-11-30 08:40 | Outpatient (RCR) | payer MEDICARE ==
[~2020-11-30 08:40] MED LIST changes: +IBUPROFEN400 MG PO; +METOPROLOL SUCC25 MG PO; +ULTRAM50 MG PO
== END 2020-12-08 ==
LOC: PT 08:40
PROVIDERS: ATTEND Family Medicine
DX: M54.16 Radiculopathy, lumbar region (principal); M62.81 Muscle weakness (generalized); R53.81 Other malaise; M53.86 Other specified dorsopathies, lumbar region

== ENCOUNTER → 2024-03-31 | Outpatient (REF) | payer MEDICARE ==
[~2024-03-31] MED LIST changes: +AMLODIPINE BESYL5 MG PO; +FLONASE ALLERG9.9 ML INH; +LATANOPROST2.5 ML OP; +LEXAPRO10 MG PO; +LUMIGAN2.5 M1 OP; +PROVENTIL HFA6.7 GM INH
== END ==
LOC: RAD 08:53
PROVIDERS: ATTEND Physician Assistant
DX: M25.551 Pain in right hip (principal); M25.552 Pain in left hip; M25.561 Pain in right knee; M54.50 Low back pain, unspecified; M15.0 Primary generalized (osteo)arthritis
CPT/HCPCS: 72100; 73521